=== PATIENT | male | born 1965 | race Caucasian/White ===

== ENCOUNTER → 2024-08-20 | Outpatient (CLI) | payer BC ==
[2024-08-20 10:44] VITALS: BP 137/62; PULSE 80; RESP 16; TEMP 97.8
--- NOTE | 2024-08-20 11:36 | P.SLEEP ---
History of Present Illness DATE: 08/20/2024 CONSULTATION/NEW PATIENT EVALUATION HISTORY OF PRESENT ILLNESS/SLEEP-WAKE EVALUATION: 59-year-old gentleman had be en evaluated in the sleep center for possible obstructive sleep apnea hypopnea syndrome. Patient had home sleep apnea test in another institution which showed apnea hypopnea index 14.6, apneas not classified. Patient was started on treatment with AutoPap. I checked CPAP unit. Range of the pressure 4-15, average pressure 11.7. Usage is 23 out of 70 nights with no nights for more than 4 hours, average usage 1 hour per night. Leak is 26 L/min. Apnea hypopnea index average 14.9 which include obstructive 9.8 and central 3.0. SLEEP SCHEDULE: Usually sleep schedule from 10 PM to 5:30 AM on weekdays and until 6:30 AM on weekend. FALLING ASLEEP: No problems with falling asleep. DURING SLEEP: Patient snores, wakes up from sleep 6 times with nocturia, has episodes of stop breathing during the sleep. No history of hypnogogical hallucinations, sleep paralysis, or cataplexy. DURING THE DAY/WAKE STATE: []. Rolfe sleepiness scale is 8. Patient usually does not take any naps. PAST MEDICAL HISTORY: Asthma, bladder cancer, hyperlipidemia. PAST SURGICAL HISTORY: Status post surgical treatment for bladder cancer. MEDICATIONS: Please see below. SOCIAL HISTORY: Please see below. FAMILY HISTORY: Please see below. REVIEW OF SYSTEMS: Multiple awakenings from sleep. No fevers. No double vision. No recent chest pain. No shortness of breath. No abdominal pain. No bleeding episodes. No blood in urine. No seizure episodes. PHYSICAL EXAMINATION: GENERAL: A pleasant patient without any distress. VITAL SIGNS: BP please see below, weight 200 pounds, BMI 30.4. HEENT: PERRLA, EOMI. Evaluation of oropharynx showed tongue protrudes midline, low position of soft palate Mallampati 3. NECK: Supple. No JVD. Thyroid is not palpable. 16 inches in circumference. LUNGS: Clear to percussion and to auscultation. Good air exchange. No wheezing or rhonchi. HEART: S1, S2 regular. No murmurs, gallops or rubs. ABDOMEN: Soft and nontender. Bowel sounds are present. No organomegaly appreciated. EXTREMITIES: No clubbing or cyanosis. HACK DRIVER: Awake, alert, and oriented x3. Cranial nerves 2 to 7 intact. There is no fasciculation or atrophy noted. No focal deficits observed. ASSESSMENT: 1. Sleep apnea diagnosed in another institution by home sleep apnea test with apnea hypopnea index 14.6, type of apneas is not classified by results of the test, which could be be obstructive or central. On treatment with AutoPap no improvements of respiration, average apnea-hypopnea index 14.9, checking day by day showed apnea hypopnea index up to 30. Low position of soft palate Mallampat i 3. 2. Asthma. 3. History of bladder CA, status post surgical treatment. 4. Hyperlipidemia. 5 mild obesity, BMI 30.4. 6 . Minimal increasing blood pressure in the office 137/67 today. PLAN: 1. Polysomnography for evaluation of patient's breathing during sleep. 2. CPAP/BiPAP titration if sleep study confirms sleep apnea-hypopnea syndrome. Patient may need BiPAP ST mode treatment, if test will show central events. 3. Preferable position during sleep on the side. 4. No driving if patient feels any sleepiness. Patient is aware of civil and criminal liability for unsafe driving. 5. Sleep hygiene with regular sleep time for at least 7.5-8 hours. 6. Watching weight. 7. Patient will try to continue using AutoPap equipment for the whole night. Thank you very much for referring this patient for consultation. Sincerely, Mckay Lundberg MD, PhD, FAASM. Diplomat of [place] [employer], Sleep Medicine Board by [place] [employer] [place] [employer] [facility] [place] cc: Aretha Cruz Past Medical History Past Medical History: Cancer, GERD/Reflux, Sleep Apnea/CPAP/BIPAP Additional Past Medical History / Comment(s): Bladder Cancer History of Any Multi-Drug Resistant Organisms: None Reported Additional Past Surgical History / Comment(s): cystoscopy, Stints, BCG Past Anesthesia/Blood Transfusion Reactions: No Reported Reaction Past Psychological History: No Psychological Hx Reported Smoking Status: Never smoker Past Drug Use History: Marijuana - Past Family History Sister(s) Additional Family Medical History / Comment(s): Mental Illness Father Family Medical History: GERD/Reflux, Hypertension Additional Family Medical History / Comment(s): snoring Mother Family Medical History: Cancer Medications and Allergies Home Medications Medication Instructions Recorded Confirmed Type Finasteride [Proscar] 5 mg PO DAILY 08/20/24 08/20/24 History Omeprazole/Sodium Bicarbonate 20 mg PO DAILY 08/20/24 08/20/24 History [Omeprazole-Bicarb 20-1,100 Cap] Rosuvastatin [Crestor] 10 mg PO DAILY 08/20/24 08/20/24 History Tamsulosin [Flomax] 0.4 mg PO DAILY 08/20/24 08/20/24 History Physical Exam Vitals: Vital Signs Temp Pulse Resp BP Pulse Ox 08/20/24 10:43 97.8 F 80 16 137/62 95 Intake and Output 08/19/24 08/20/24 08/20/24 22:59 06:59 14:59 Other: Weight 90.718 kg Sleep Note - Sleep Data ESS Total: 8 - Sleep Note Sleep Note: Temperature: 97.8 F Pulse Rate: 80 Respiratory Rate: 16 Blood Pressure: 137/62 SpO2: 95 Height: 5 ft 8 in Weight: 90.718 kg BMI: Neck Circumference: 16
== END ==
LOC: 3 N SLEEP 10:25
PROVIDERS: ATTEND Internal Medicine
DX: G47.33 Obstructive sleep apnea (adult) (pediatric) (principal); J45.909 Unspecified asthma, uncomplicated; E78.5 Hyperlipidemia, unspecified; E66.9 Obesity, unspecified; Z68.30 Body mass index [BMI] 30.0-30.9, adult; I10 Essential (primary) hypertension; Z85.51 Personal history of malignant neoplasm of bladder; Z79.899 Other long term (current) drug therapy
CPT/HCPCS: 99202